=== PATIENT | female | born 1955 | race Caucasian/White ===

== ENCOUNTER 2025-07-30 17:46 | Emergency (ER) | payer MEDICARE, OTHER, SELFPAY ==
[2025-07-30 17:49] VITALS: BP 145/82; PULSE 85; RESP 16; TEMP 36.6; O2SAT 98
--- NOTE | 2025-07-30 18:00 | DI.CT_ITS ---
Exam(s) CT HEAD WO EXAM: CT HEAD WO CLINICAL HISTORY: fall 2 days ago, thrombocytopenia. TECHNIQUE: Imaging Protocol: Axial computed tomography images with coronal and sagittal reformatted images were created and reviewed COMPARISON: No exams were available for comparison FINDINGS: There is a relatively focal hematoma over the right frontal bone. There is no skull fracture. There is opacification of ethmoidal air cells bilaterally. The frontal sinuses are not developed and the sphenoid sinuses are also hypoplastic. There are surgical defects noted in the medial cameron of both maxillary sinuses. There is also mucosal thickening and small amount of fluid in both maxillary sinuses. There is no evidence of intracranial hemorrhage, mass effect, or shift of midline structures. There are no extra-axial fluid collections. The ventricles are not enlarged or shifted and there is no blood within the ventricular system nor within the basal cisterns. IMPRESSION: Right frontal scalp hematoma. No skull fractures. No acute intracranial findings. Report called by myself to ER physician 07/30/2025 at 6:35 p.m. RADIATION DOSE DELIVERED: 926.93mGy.cm Total DLP DATA REPOSITORY: All CT scans at this facility are submitted to the National Radiology Data Registry (NRDR) Dose Index Registry (DIR) with the [employer] ([employer]). RADIATION OPTIMIZATION: All CT scans at this facility use at least one of these dose optimization techniques: automated exposure control; mA and/or kV adjustment per patient size (includes targeted exams where dose is matched to clinical indication); or iterative reconstruction.
--- NOTE | 2025-07-30 18:01 | W.ED.GENAD ---
Discharge Plan Disposition Patient Disposition: Home Condition: Stable Discharge Details Clinical Impression: Blunt head trauma ED Provider: Tristan Bertrand Home Meds and New Rx's Prescriptions: No Action No Known Home Meds Discharge Instructions Additional Instructions: Your CAT scan did not show any bleeding in the head. The bruising can take a few weeks to go away and will likely take longer since your platelets are low. Follow-up with your primary care provider as needed. If you feel more ill or have new symptoms such as persistent vomiting return to the emergency department for reevaluation. HPI General Mode of arrival: ambulatory. Date/Time Provider Initiated Documentation: 07/30/25 17:48. Information obtained by: patient and family. History of Present Illness 69 year old F presents to the emergency department with the chief complaint of fell saturday, head bruising, described as moderate, Patient started experiencing this day(s) (2) and it has been constant. No relieving factors improve symptom(s), No exacerbating factors reported . Patient notes no other symptoms.. Patient did receive the following treatments prior to arrival, none Related Data Home Medications ?Medication ?Instructions ?Recorded ?Confirmed Unknown [No Known Home Meds] 07/30/25 07/30/25 Allergies Allergy/AdvReac Type Severity Reaction Status Date / Time No Known Allergies Allergy Unverified 07/30/25 17:53 General Stated Complaint: Fall/Non TraumaCriteria HARLEY: 3 Review of Systems All systems reviewed & are unremarkable except as noted in HPI and below Constitutional Constitutional: Denies weakness Cardiovascular Cardiovascular: Denies chest pain and Denies dyspnea Respiratory Respiratory: Denies cough and Denies dyspnea Gastrointestinal Gastrointestinal: Denies abdominal pain and Denies vomiting Neurologic Neurologic: Denies weakness Exam Const General: no acute distress Orientation: alert [facility] Head: no palpable skull fracture Ears: external ears normal General nose exam: external nose normal Mouth: moist mucous membranes Eyes General: appearance normal, both eyes and all related structures Neck Neck: normal visual inspection, full ROM and nontender Resp Effort & Inspection: normal respiratory effort and able to speak in complete sentences Cardio Rate: regular rate Skin General skin exam: no rashes or lesions noted Neuro General: patient alert and patient oriented x3 Extrem General: normal to inspection Psych Mental Status: mental status grossly normal Course Vital Signs Vital signs: Vital Signs Temperature 36.6 C 07/30/25 17:49 Pulse 85 07/30/25 17:49 Respiratory Rate 16 07/30/25 17:49 Blood Pressure 145/82 H 07/30/25 17:49 Pulse Oximetry 98 07/30/25 17:49 Temperature 36.6 C 07/30/25 17:49 Pulse 85 07/30/25 17:49 Respiratory Rate 16 07/30/25 17:49 Blood Pressure 145/82 H 07/30/25 17:49 Pulse Oximetry 98 07/30/25 17:49 Pain Level 0 07/30/25 17:49 Medical Decision Making 69-year-old female who is here visiting for a wedding and states she was recently diagnosed with thrombocytopenia and had a platelet transfusion last week comes in with concerns for bruising after she fell going to the bathroom once at night. Family saw her today were concerned specially with her low platelets so brought her here. Patient is ambulatory on arrival and oriented and denies any headache, no face pain, no neck pain, she says she feels well without any complaints. She does have a 2 cm scalp hematoma on the right frontal scalp, she has a bruising of the forehead. Pupils are equal and reactive to light. She has no facial tenderness. No neck tenderness. I suspect contusions but given her history of thrombocytopenia will obtain a CT head to evaluate for possible hemorrhage. Patient stable, CT negative for acute intracranial findings. She is stable for discharge and will follow-up with her PCP, return precautions given. Differential Diagnosis Differential Diagnosis: tbi, concussion bruising PFSH All Active Problems (Updated 07/30/25 @ 18:28 by Tristan Bertrand MD) Blunt head trauma (Acute) Social History Smoking/Tobacco Use Status: Never Smoking risk assessment performed?: Yes Alcohol Intake: never Drug use: Never Substance use type: does not use Do you feel safe at home: Yes Do you feel safe in your relationship?: Yes
== END 2025-07-30 18:46 | disposition home or self-care (01) ==
LOC: ER 18:52
PROVIDERS: Emergency Provider Emergency Medicine
DX: S09.90XA Unspecified injury of head, initial encounter (principal); W19.XXXA Unspecified fall, initial encounter
CPT/HCPCS: 99284; 99283; 70450